=== PATIENT | male | born 1975 | race Caucasian/White ===

== ENCOUNTER 2021-05-30 21:16 | Emergency (ER) | payer SELFPAY ==
[~2021-05-30] VITALS: Ht 175.3 cm; Wt 104.0 kg
[2021-05-30] MEDS ORDERED: ACETAMINOPHEN 325MG TABLET PO ONE (22:15)
[2021-05-30 23:59] LABS: BASOPHILS % 1.1 % (0.0-2.0); EOSINOPHILS % 4.1 % (0.0-5.0); HEMATOCRIT. 42.1 % (42.0-52.0); HEMOGLOBIN. 14.3 g/dL (14.0-18.0); LYMPHOCYTES % 29.8 % (20.0-50.0); MEAN CORPUSCULAR VOLUME 88.6 fL (80.0-94.0); MEAN PLATELET VOLUME 8.3 fl (7.4-10.4); MONOCYTES % 10.3 % (2.0-8.0); NEUTROPHILS % 54.7 % (40.0-76.0); PLATELET 213 x1000/uL (130-400); RED BLOOD CELL COUNT 4.75 mill/uL (4.7-6.1); RED CELL DISTRIBUTION WIDTH 13.3 % (11.6-14.6)
[2021-05-31 00:04] LABS: CHLORIDE 110 mEq/L (98-107)
[2021-05-31 00:10] LABS: ETHANOL BLOOD < 10 mg/dL
[2021-05-31 04:58] VITALS: BP 148/89
== END 2021-05-31 04:58 | disposition home or self-care (01) ==
LOC: ER 21:16
DX: S09.8XXA Other specified injuries of head, initial encounter (principal); I72.6 Aneurysm of vertebral artery; S02.2XXA Fracture of nasal bones, initial encounter for closed fracture; I10 Essential (primary) hypertension; Y04.0XXA Assault by unarmed brawl or fight, initial encounter; Y93.89 Activity, other specified; Y92.9 Unspecified place or not applicable
CPT/HCPCS: 36415; 70486; 70496; 70498; 80053; 80320; 85025; 99285; L0172; G0480